=== PATIENT | female | born 1985 | race Caucasian/White ===

== ENCOUNTER 2020-10-30 12:39 | Emergency (ER) | payer SELFPAY ==
[2020-10-30 12:46] VITALS: BP 110/68; PULSE 94; RESP 16; TEMP 36.4; O2SAT 100
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
== END 2020-10-30 13:18 | disposition home or self-care (01) ==
PROVIDERS: Emergency Provider Nurse Practitioner
DX: H60.502 Unspecified acute noninfective otitis externa, left ear (principal); J45.909 Unspecified asthma, uncomplicated
CPT/HCPCS: 99213; G0463

== ENCOUNTER 2021-05-31 09:18 | Emergency (ER) | payer SELFPAY ==
--- NOTE | 2021-05-31 09:29 | ED.URI ---
HPI - URI/Sore Throat General Chief Complaint: Upper Respiratory Infection Stated Complaint: asthma flare up Time Seen by Provider: 05/31/21 09:29 Source: patient and RN notes reviewed History of Present Illness HPI Narrative: Patient is a 35-year-old female presents the urgent care with complaints of an asthma flare . Patient states that she has not seen her doctor for refill of her nebulizers and inhaler and has not had an asthma flare since last year. Patient states that her symptoms started last night and she has had difficulty breathing and shortness of breath since then. Patient denies of any other upper respiratory complaints, cough, fever, nausea, vomiting. No other acute complaints. No acute distress noted. Patient aware of the plan of care. Some parts of this dictation were generated by voice recognition software and may contain typographical and/or grammatical inaccuracies. Related Data Allergies Allergy/AdvReac Type Severity Reaction Status Date / Time No Known Allergies Allergy Verified 05/31/21 09:39 Review of Systems Review of Systems: CONSTITUTIONAL: Denies fever, chills, or sweats. EYES: Denies visual changes, redness, or discharge. ENT: Denies rhinorrhea, congestion, sore throat, or otalgia. CARDIOVASCULAR: Denies chest pain, palpitations, or edema. RESPIRATORY: Reports of shortness of breath and slight wheezing GASTROINTESTINAL: Denies abdominal pain, nausea, vomiting, or diarrhea. GENITOURINARY: Denies dysuria or hematuria. SKIN: Denies rash or itching. MUSCULOSKELETAL: Denies back pain, joint pain, or myalgia. NEUROLOGIC: Denies headache, numbness, or weakness. All other systems reviewed are negative, except as documented in HPI. [facility] Past Medical History Medical History (Updated 05/31/21 @ 10:22 by MIKE Barnes) Asthma Surgical History Surgical History History of appendectomy Previous section Comments At the time of my signature, I reviewed and agree with the nursing past medical, surgical, social, and family history. There is no relevant family history pertinent to the patient complaint. Exam Narrative: GENERAL: This is a well-nourished, well-developed patient, in no apparent distress. HEAD: normocephalic, atraumatic. EYES: PERRL. Sclera clear/white. Vision is grossly intact. EARS: External ears normal, auditory canals clear and without drainage, TMs normal without perforation. Hearing grossly intact. NOSE: External nose normal with no obvious nasal discharge, nares without redness, no rhinorrhea. THROAT: Mucous membranes moist, posterior pharynx clear. Moderate postnasal drainage NECK: Neck supple CARDIOVASCULAR: Regular rate and rhythm without murmurs, gallops, or rubs. RESPIRATORY: Clear to auscultation. Tight and diminished bibasilar SKIN: warm, intact with no suspicious lesions or rash, good texture and turgor. NEURO: awake, alert, and oriented to person, place and time. There were no obvious focal neurologic abnormalities. EXTREMITIES: No clubbing, cyanosis, or edema. Course Course Level of Care: Express Care Visit Vital Signs Vital signs: Vital Signs Temperature 98.4 F 05/31/21 09:30 Pulse Rate 59 L 05/31/21 09:30 Respiratory Rate 18 05/31/21 09:30 Blood Pressure 128/90 05/31/21 09:30 Pulse Oximetry 100 05/31/21 09:30 Temperature 98.4 F 05/31/21 09:30 Pulse Rate 59 L 05/31/21 09:30 Respiratory Rate 18 05/31/21 09:30 Blood Pressure 128/90 05/31/21 09:30 Pulse Oximetry 100 05/31/21 09:30 Reviewed MDM - URI/Sore Throat MDM Narrative Medical decision making narrative: Advised the patient to complete oral steroid regimen as prescribed. Be sure to eat and drink with medication. Use your nebulizer/albuterol inhaler as needed for shortness of breath or wheezing. If you develop any increase in symptoms associated with shortness of breath or chest pain?go to the emergen
[2021-05-31 09:30] VITALS: BP 128/90; PULSE 59; RESP 18; TEMP 36.9; O2SAT 100
[2021-05-31] MEDS: IPRATROPIUM BR 0.02% INH SOLN 0.5 MG/2.5 ML VIAL INHALATION (09:55)
[2021-05-31] MEDS: ALBUTEROL SULFATE NEB 2.5 MG/3 ML INH INHALATION (09:55)
== END 2021-05-31 10:25 | disposition home or self-care (01) ==
PROVIDERS: Emergency Provider Nurse Practitioner Family; PCP Internal Medicine
DX: J45.31 Mild persistent asthma with (acute) exacerbation (principal)
CPT/HCPCS: 94640; 99213; G0463

== ENCOUNTER 2021-06-25 13:00 | Emergency (ER) | payer SELFPAY ==
[2021-06-25 13:06] VITALS: BP 119/79; PULSE 92; RESP 16; TEMP 37.3; O2SAT 100
--- NOTE | 2021-06-25 13:20 | ED.SKABFB ---
HPI - Skin/Abscess/Foreign Bdy General Chief complaint: Skin/Abscess/Foreign Body Stated complaint: Foreign Body in Right Hand Time Seen by Provider: 06/25/21 13:22 Source: patient and RN notes reviewed Mode of arrival: ambulatory Limitations: no limitations History of Present Illness HPI narrative: 35-year-old female presents with concern for foreign body in her right hand. Reports 2 days ago she was throwing away a glass from a picture frame when it broke and she got a shard of glass in her hand. She reports she went to the emergency room where she had an x-ray, no glass was seen, they were not able to remove any glass manually. She reports she can feel the glass grinding in her hand. Reports she tried to grab it with tweezers, was able to feel it but was not able to remove it. MD complaint: foreign body Related Data Allergies Allergy/AdvReac Type Severity Reaction Status Date / Time No Known Allergies Allergy Verified 06/25/21 13:14 Review of Systems Review of Systems: CONSTITUTIONAL: Denies malaise, chills, sweats, or fever. EYES: Denies redness, or discharge. ENT: Denies rhinorrhea, congestion, swollen lips, swollen tongue CARDIOVASCULAR: Denies chest pain, palpitations, or edema. RESPIRATORY: Denies cough or dyspnea. GASTROINTESTINAL: Denies abdominal pain, nausea, vomiting SKIN: Reports glass foreign body in her right hand, palmar aspect MUSCULOSKELETAL: Denies joint painor myalgia. NEUROLOGIC: Denies headache. All systems reviewed & are unremarkable except as noted in HPI and below PMFSH Past Medical History Medical History (Updated 06/25/21 @ 14:26 by Katrin Flores NP) Asthma Surgical History Surgical History History of appendectomy Previous section Comments At time of signature, agree with nursing past medical, surgical, social and family history. There is no relevant family history pertinent to the presenting complaint Exam Narrative: GENERAL: Well-appearing, well-nourished, and in no acute distress. HEAD: Normocephalic, atraumatic. EYES: Sclera clear ENT: Mucous membranes moist. NECK: Supple. No lymphadenopathy CHEST: Clear to auscultation. No respiratory distress. HEART: Regular rate and rhythm. SKIN: Warm, dry. Open laceration to the mid palmar aspect of the right hand. Foreign body found, see procedure note. Possible deep foreign body palpated to the dorsal aspect of the hand NEURO: Alert and oriented x3. PSYCH: Normal mood and affect Course Course Emergency Course: Large piece of glass removed from the palmar aspect of the hand, possible deep foreign body palpated to the dorsal aspect of the hand. Patient placed on antibiotics and given referral to Dr. Gonsales or follow-up with primary for further evaluation of deep foreign body. Patient is aware of diagnosis, understands and agrees to treatment plan. Anticipatory guidance given. Patient agrees to follow-up as directed and is aware of reasons to seek care at the emergency department. Portions of this record may have been created with voice recognition software Level of Care: Express Care Visit Vital Signs Vital signs: Vital Signs Temperature 99.2 F 06/25/21 13:06 Pulse Rate 92 06/25/21 13:06 Respiratory Rate 16 06/25/21 13:06 Blood Pressure 119/79 06/25/21 13:06 Pulse Oximetry 100 06/25/21 13:06 Temperature 99.2 F 06/25/21 13:06 Pulse Rate 92 06/25/21 13:06 Respiratory Rate 16 06/25/21 13:06 Blood Pressure 119/79 06/25/21 13:06 Pulse Oximetry 100 06/25/21 13:06 Reviewed. Procedures Foreign Body Removal Foreign Body #1: Foreign Body Removal Date: 06/25/21 Foreign Body Removal Time: 14:05 Time Out Performed: yes Site: right and hand Description of foreign body: other (glass) Technique: removal with forceps and irrigation Confirmed by:: patient report Complications: none
== END 2021-06-25 14:31 | disposition home or self-care (01) ==
PROVIDERS: Emergency Provider Nurse Practitioner
DX: S61.441A Puncture wound with foreign body of right hand, initial encounter (principal); W25.XXXA Contact with sharp glass, initial encounter; J45.909 Unspecified asthma, uncomplicated
CPT/HCPCS: 99213; G0463

== ENCOUNTER 2021-08-03 10:15 | Emergency (ER) | payer SELFPAY ==
[2021-08-03 10:22] VITALS: BP 109/66; PULSE 88; RESP 16; TEMP 36.9; O2SAT 98
[2021-08-03 10:29] VITALS: BP 109/66; PULSE 88; RESP 16; TEMP 36.9; O2SAT 98
--- NOTE | 2021-08-03 10:33 | ED.GENADULT ---
HPI - General Adult General Chief complaint: Upper Respiratory Infection Stated complaint: Asthma Time Seen by Provider: 08/03/21 10:25 Source: patient Mode of arrival: ambulatory Limitations: no limitations History of Present Illness HPI narrative: 35-year-old female presented for complaint of asthma exacerbation that occurred 4 days ago. She states she is feeling much better today but is running low on nebulizer medicine and needs a note for work. She states she has a history of asthma which causes her shortness of breath and wheezing and cough. Currently denies chest tightness/ pain, shortness of breath, fever or chills. Scheduled with PCP in a few weeks. Vaccinated for Covid, needs booster. Related Data Allergies Allergy/AdvReac Type Severity Reaction Status Date / Time No Known Allergies Allergy Verified 08/03/21 10:29 Review of Systems Review of Systems: CONSTITUTIONAL: Denies body aches, fever, chills, or sweats. EYES: Denies visual changes, redness, or discharge. ENT: Denies rhinorrhea, congestion, sore throat, or otalgia. CARDIOVASCULAR: Denies chest pain, palpitations, or edema. RESPIRATORY: Denies cough or dyspnea. GASTROINTESTINAL: Denies abdominal pain, nausea, vomiting, or diarrhea. GENITOURINARY: Denies dysuria or hematuria. SKIN: Denies rash, itching, or wounds. MUSCULOSKELETAL: Denies back pain, joint pain, or myalgia. NEUROLOGIC: Denies headache, numbness, tingling, or weakness. PSYCH: Denies depression or anxiety. All systems reviewed & are unremarkable except as noted in HPI and below PMFSH Past Medical History Medical History (Updated 08/03/21 @ 10:36 by Sumaya Suresh APRN) Asthma Surgical History Surgical History History of appendectomy Previous section Comments At time of signature, I have reviewed and agree with nursing past medical, surgical, social and family history unless otherwise noted. Please see nursing chart for further information. There is no relevant family history pertinent to the presenting complaint Exam Narrative: GENERAL: Well-appearing, well-nourished, and in no acute distress. HEAD: Normocephalic, atraumatic. EYES: EOMI. No redness or drainage. Conjunctivae normal. ENT: Mucous membranes pink and moist. No rhinorrhea. TMs normal bilaterally. Throat normal. Uvula midline. NECK: Normal AROM. Supple. No lymphadenopathy. CHEST: No respiratory distress. Clear to auscultation. HEART: Regular rate and rhythm. No murmur appreciated. Normal peripheral pulses. ABDOMEN: Soft, nontender, nondistended, normal active bowel sounds. MUSCULOSKELETAL: No bony tenderness. EXTREMITIES: Normal range of motion. No edema. SKIN: Warm, dry, no rash. Capillary refill normal. Normal skin turgor. NEURO: No focal deficits. Alert and oriented x3. Gait steady. PSYCH: Normal affect. No signs of depression or anxiety. Course Course Emergency Course: Patient is aware of diagnosis, understands and agrees to treatment plan. Anticipatory guidance given. Patient agrees to follow-up as directed and is aware of reasons to seek care at the emergency department. Portions of this record may have been created with voice recognition software Level of Care: Express Care Visit Vital Signs Vital signs: Vital Signs Temperature 98.4 F 08/03/21 10:22 Pulse Rate 88 08/03/21 10:22 Respiratory Rate 16 08/03/21 10:22 Blood Pressure 109/66 08/03/21 10:22 Pulse Oximetry 98 08/03/21 10:22 Temperature 98.4 F 08/03/21 10:29 Pulse Rate 88 08/03/21 10:29 Respiratory Rate 16 08/03/21 10:29 Blood Pressure 109/66 08/03/21 10:29 Pulse Oximetry 98 08/03/21 10:29 Medical Decision Making Differential Diagnosis Differential Diagnosis: asthma exacerbation, bronchitis, covid, viral infection Vital Signs Vital Signs: Vital Signs Temperature 98.4 F 08/03/21 10:22 Pulse Rate 88 08/03/21 10:22 Respi
== END 2021-08-03 10:43 | disposition home or self-care (01) ==
PROVIDERS: Emergency Provider Nurse Practitioner Family
DX: R05.9 Cough, unspecified (principal); J45.909 Unspecified asthma, uncomplicated
CPT/HCPCS: 99211; G0463

== ENCOUNTER 2021-10-01 14:50 | Emergency (ER) | payer SELFPAY ==
[2021-10-01 14:56] VITALS: BP 120/74; PULSE 85; RESP 20; TEMP 37.1; O2SAT 98
--- NOTE | 2021-10-01 15:56 | ED.GENADULT ---
HPI - General Adult General Chief complaint: Abdominal Pain Stated complaint: abdo pain Source: patient Mode of arrival: ambulatory Limitations: no limitations History of Present Illness HPI narrative: Patient presents for evaluation of vaginal bleeding. She indicates she had the sensation that she needed to urinate earlier today. When she sat on the toilet she passed a clot vaginally. This is atypical for her. She states her periods are regular. LMP 09/05/21. She is not on contraception. She states she then placed a pad in her underwear and noted a small amount of bleeding since that time. At present time she has a tampon in. She denies any significant abdominal/pelvic pain. No fever, chills, nausea, vomiting, vaginal discharge or urinary symptoms. No hx of similar symptoms. She reports a small amount of cramping in lower back. . She is sexually active with one male partner who is asymptomatic. No additional complaints or concerns. Related Data Allergies Allergy/AdvReac Type Severity Reaction Status Date / Time No Known Allergies Allergy Verified 10/01/21 15:07 Review of Systems Review of Systems: CONSTITUTIONAL: Denies fever, chills, or sweats. EYES: Denies visual changes, redness, or discharge. ENT: Denies rhinorrhea, congestion, sore throat, or otalgia. CARDIOVASCULAR: Denies chest pain, palpitations, or edema. RESPIRATORY: Denies cough or dyspnea. GASTROINTESTINAL: Denies abdominal pain, nausea, vomiting, or diarrhea. GENITOURINARY: Reports vaginal bleeding and passing clots. Denies urinary frequency, urgency, hesitancy and dysuria. Denies vaginal discharge SKIN: Denies rash or itching. MUSCULOSKELETAL: Reports cramping sensation in right lower back. Denies joint pain, or myalgia. NEUROLOGIC: Denies headache, numbness, dizziness, or weakness. PSYCHIATRIC: Denies anxiety or depression. [facility] Past Medical History Medical History Asthma Surgical History Surgical History History of appendectomy Previous section Family History Family History Mother Family history non-contributory Social History Social History Smoking status: Never smoker Alcohol intake: never Substance use: never Living arrangements: with family Gender identity (if verbalized by the patient): Female Sexual Orientation (if Verbalized by the Patient): Straight or Heterosexual Spiritual care concerns: No Exam Narrative: GENERAL: Well-appearing, well-nourished, and in no acute distress. HEAD: Normocephalic, atraumatic. EYES: PERRLA and EOMI. ENT: Nares clear, no rhinorrhea or epistaxis. Mucous membranes moist. Oropharynx without tonsillar hypertrophy exudate or other lesions. Bilateral TMs pearly willard nonbulging NECK: Supple. No adenopathy or masses. No carotid bruits or JVD CHEST: Clear to auscultation. No respiratory distress. No wheezes rales or rhonchi HEART: Regular rate and rhythm. No murmur heard. Normal peripheral pulses. ABDOMEN: Soft, nontender, nondistended, normal active bowel sounds. BACK: No CVA Tenderness EXTREMITIES: Normal range of motion. No edema. SKIN: Warm, dry, no rash. NEURO: No focal deficits. Alert and oriented x3. PSYCH: Normal mood and affect. Course Course Emergency Course: This is a 35-year-old female that presented for evaluation after she passed a clot vaginally earlier today. HCG is negative. No evidence of infection on review of urine here. She has no abdominal tenderness or CVA tenderness. She could be starting her period. Less likely would be miscarriage in early or perhaps fibroids. I advised she monitor her symptoms to determine whether this is start of her menstruation. She has no vaginal discharge to suggest vaginal
== END 2021-10-01 16:00 | disposition home or self-care (01) ==
PROVIDERS: Emergency Provider Nurse Practitioner; PCP Internal Medicine
DX: N93.9 Abnormal uterine and vaginal bleeding, unspecified (principal)
CPT/HCPCS: 81003; 81025; 99212; G0463

== ENCOUNTER 2024-02-24 08:42 | Emergency (ER) | payer SELFPAY ==
--- NOTE | ~2024-02-24 | XR_ITS ---
[id number] INDICATION: Left lateral neck pain after fall TECHNIQUE: 5 views of the cervical spine. FINDINGS: No prior studies for comparison. The cervical spine is visualized to the cervicothoracic junction. There is no prevertebral soft tiss ue swelling, listhesis, or loss of vertebral body height. Intervertebral disc spaces are normal. Th e osseous central canal is patent. No displaced cervical spine fractures are identified. IMPRESSION: 1. No acute osseous abnormality of the cervical spine. Reviewed, dictated and finalized at location B.
--- NOTE | ~2024-02-24 | XR_ITS ---
XR shoulder LT min 2V 02/24/2024 09:17 INDICATION: Left shoulder pain PROCEDURE: 4 views left shoulder COMPARISON: No prior studies for comparison. FINDINGS: Fracture, dislocation or subluxation is not identified. The soft tissues appear within norm al limits. No foreign bodies are identified. IMPRESSION: 1: NO ACUTE BONE OR JOINT ABNORMALITY IDENTIFIED. Reviewed, dictated and finalized at location B.
[2024-02-24 08:49] VITALS: BP 155/85; PULSE 102; RESP 16; TEMP 36.6; O2SAT 98
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
== END 2024-02-24 09:55 | disposition home or self-care (01) ==
PROVIDERS: Emergency Provider Registered Nurse; PCP Internal Medicine
DX: S40.012A Contusion of left shoulder, initial encounter (principal); S16.1XXA Strain of muscle, fascia and tendon at neck level, initial encounter; V86.99XA Unspecified occupant of other special all-terrain or other off-road motor vehicle injured in nontraffic accident, initial encounter; J45.909 Unspecified asthma, uncomplicated
CPT/HCPCS: 72040; 73030; 99213; G0463

== ENCOUNTER 2025-01-28 13:27 | Emergency (ER) | payer OTHER, SELFPAY ==
--- NOTE | 2025-01-28 13:30 | ED_ITS ---
HPI - URI/Sore Throat General Chief Complaint: Nausea/Vomiting/Diarrhea Stated Complaint: Vomiting Source: patient and RN notes reviewed Mode of arrival: ambulatory Limitations: no limitations History of Present Illness MD elicited complaint: cough and sore throat Related Data Allergies Allergy/AdvReac Type Severity Reaction Status Date / Time No Known Allergies Allergy Verified 01/28/25 13:33 Review of Systems Review of Systems: CONSTITUTIONAL: Denies malaise, chills, sweats, or fever. EYES: Denies visual changes, redness, or discharge. ENT: Reports rhinorrhea, congestion, sinus pain, otalgia and sore throat. CARDIOVASCULAR: Denies chest pain, palpitations, or edema. RESPIRATORY: Reports cough. Denies dyspnea. GASTROINTESTINAL: Denies abdominal pain, nausea, vomiting, diarrhea SKIN: Denies rash or itching. MUSCULOSKELETAL: Denies myalgia. NEUROLOGIC: Denies headache. All systems reviewed & are unremarkable except as noted in HPI and below PMFSH Past Medical History Medical History (Updated 01/28/25 @ 14:04 by Katrin Flores NP) Asthma Surgical History Surgical History Previous section History of appendectomy Family History Family History Mother Family history non-contributory Social History Social History Smoking status: Never smoker Alcohol intake: current Alcohol use details: social Substance use: never Living arrangements: with family Gender identity (if verbalized by the patient): Female Sexual Orientation (if Verbalized by the Patient): Straight or Heterosexual Spiritual care concerns: No Comments At time of signature, agree with nursing past medical, surgical, social and family history. There is no relevant family history pertinent to the presenting complaint Exam Narrative: GENERAL: Well-appearing, well-nourished, and in no acute distress. HEAD: Normocephalic EYES: PERRLA, conjunctivae clear ENT: Nares clear, turbinates edematous and erythematous, clear discharge. Mucous membranes moist. TM pearly willard with dull light reflex bilaterally; no tragal tenderness. Oropharynx not erythematous without lesions. Tonsils not enlarged and without exudate, no drooling, no hoarseness, no trismus, uvula midline. NECK: Supple. No lymphadenopathy CHEST: Clear to auscultation, breath sounds equal. No wheezing, rhonchi, rales, or stridor. No respiratory distress, speaks in full sentences. HEART: Regular rate and rhythm. No murmur heard. SKIN: Warm, dry, no rash. NEURO: Alert and oriented x3. PSYCH: Normal mood and affect Course Course Emergency Course: Patient is aware of diagnosis, understands and agrees to treatment plan. Anticipatory guidance given. Patient agrees to follow-up as directed and is aware of reasons to seek care at the emergency department. Portions of this record may have been created with voice recognition software Level of Care: Express Care Visit Vital Signs Vital signs: Reviewed. MDM - URI/Sore Throat MDM Narrative Medical decision making narrative: Differential diagnosis considered: Avalos virus, strep pharyngitis, allergic rhinitis, upper respiratory tract infection, sinusitis, rhinosinusitis, nasopharyngitis. viral pharyngitis, otitis media, otitis externa, pneumonia, bronchitis, viral cough syndrome, viral syndrome, and influenza. Exam findings show no acute concerns or changes; patient is non-toxic appearing and is in no distress. Patient is appropriate for outpatient treatment and follow-up. Lab Data Attestation: I reviewed the patient's lab results. Critical Care Time Critical Care Time Critical Care Time: No Discharge Plan Discharge Clinical Impression: Nausea and vomiting Patient Disposition: Home Condition: Stable Instructions: Acute Nausea and Vomiting (ED) Additional Instructions: Stay hydrated. Take small sips of fluid containing electrolytes frequently. You should go to the hospital if you experience return of persistent nausea and v omiting that does not resolve and does not allow you to tolerate any food or fluids, persistent fevers for greater than 2-3 more days, increasing abdominal pain that persists despite medications, persistent diarrhea, dizziness, syncope (fainting), or for any other concerns. Patient Language: Croatian Prescriptions: New ondansetron 4 mg tablet,disintegrating 4 mg PO Q8H PRN (Reason: nausea and vomiting) Qty: 10 0RF No Action albuterol sulfate 90 mcg/actuation HFA aerosol inhaler 2 puff INHALATION QID PRN (Reason: shortness of breath or wheezing) Qty: 8 0RF albuterol sulfate 2.5 mg /3 mL (0.083 %) solution for nebulization 2.5 mg inhalation Q6H Qty: 75 0RF Follow-up/Referrals: UNKNOWN,DOCTOR [Non-Staff] Stand Alone Forms: Work/School Release IP Time of Disposition: 14:05
[2025-01-28 13:34] VITALS: BP 152/65; PULSE 104; RESP 20; TEMP 36.2; O2SAT 100
[2025-01-28 13:58] LABS: EDCOVIDSCREEN Negative (Negative); EDINFLUASCREEN Negative (Negative); EDINFLUBSCREEN Negative (Negative)
[2025-01-28 13:59] LABS: EDSTREPNEGPOS1 Negative (Negative)
--- NOTE | 2025-01-28 14:07 | ED.NAVMDI ---
HPI - Nausea/Vomiting/Diarrhea General Chief complaint: Nausea/Vomiting/Diarrhea Stated complaint: Vomiting Time Seen by Provider: 01/28/25 14:07 Source: patient and RN notes reviewed Mode of arrival: ambulatory Limitations: no limitations History of Present Illness HPI Narrative: 39-year-old female presents with concern for nausea and vomiting started this morning. Reports general weakness, body aches, nausea, sweats and chills. She did not take her temperature. She is urinating once every 8 hours. She denies abdominal pain. Reports family members and coworkers with similar symptoms MD elicited complaint: nausea and vomiting Related Data Allergies Allergy/AdvReac Type Severity Reaction Status Date / Time No Known Allergies Allergy Verified 01/28/25 13:33 Review of Systems Review of Systems: CONSTITUTIONAL: Reports malaise, general weakness, chills, sweats ENT: Denies rhinorrhea, congestion, sinus pain, otalgia or sore throat. CARDIOVASCULAR: Denies chest pain, palpitations, or edema. RESPIRATORY: Denies cough or dyspnea. GASTROINTESTINAL: Denies abdominal pain, diarrhea, bloody, or mucous stools. Reports nausea and vomiting GENITOURINARY: Denies dysuria or hematuria. MUSCULOSKELETAL: Reports myalgia. NEUROLOGIC: Denies headache. All systems reviewed & are unremarkable except as noted in HPI and below PMFSH Past Medical History Medical History (Updated 01/28/25 @ 14:04 by Katrin Flores NP) Asthma Surgical History Surgical History Previous section History of appendectomy Family History Family History Mother Family history non-contributory Social History Social History Smoking status: Never smoker Alcohol intake: current Alcohol use details: social Substance use: never Living arrangements: with family Gender identity (if verbalized by the patient): Female Sexual Orientation (if Verbalized by the Patient): Straight or Heterosexual Spiritual care concerns: No Comments At time of signature, agree with nursing past medical, surgical, social and family history. There is no relevant family history pertinent to the presenting complaint Exam Narrative: GENERAL: Well-appearing, well-nourished, and in no acute distress. HEAD: Normocephalic, atraumatic. EYES: PERRLA, conjunctivae clear, and EOMI. ENT: Nares clear, turbinates pink, NECK: Supple. No lymphadenopathy CHEST: Speaks in full sentences. No respiratory distress. HEART: Regular rate and rhythm. ABDOMEN: Soft, flat, nondistended, nontender. No guarding, rebound tenderness, or rigidity. No pulsatile masses. Bowel sounds present in all four quadrants. No organomegaly. Negative Emerson?s sign. No periumbilical tenderness. No Supra public tenderness or distension SKIN: Warm, dry, no rash. NEURO: Alert and oriented x3. PSYCH: Normal mood and affect Course Course Emergency Course: Patient is aware of diagnosis, understands and agrees to treatment plan. Anticipatory guidance given. Patient agrees to follow-up as directed and is aware of reasons to seek care at the emergency department. Portions of this record may have been created with voice recognition software Level of Care: Express Care Visit Vital Signs Vital signs: Vital Signs Temperature 97.2 F L 01/28/25 13:34 Pulse Rate 104 H 01/28/25 13:34 Respiratory Rate 01/28/25 13:34 Blood Pressure 152/65 H 01/28/25 13:34 Pulse Oximetry 100 01/28/25 13:34 Oxygen Delivery Room Air 01/28/25 13:34 Temperature 97.2 F L 01/28/25 13:34 Pulse Rate 104 H 01/28/25 13:34 Respiratory Rate 20 01/28/25 13:34 Blood Pressure 152/65 H 01/28/25 13:34 Pulse Oximetry 100 01/28/25 13:34 Oxygen Delivery Room Air 01/28/25 13:34 Reviewed. MDM - Nausea/Vomiting/Diarrhea MDM Narrative Medical decision making narrative: No evidence of pancreatitis, AAA, cholecystitis, choledocholithiasis, cholangitis, mesenteric ischemia, small bowel obstruction, diverticulitis, colitis, appendicitis, or pelvic etiology such as ovarian/testicular torsion, TOA, or ectopic . Patient has no history of peptic ulcer, H. pylori, chronic aspirin NSAID or corticosteroid use, chronic alcohol use, no history of inflammatory bowel disease, no history of active abdominal infection or malignancy. Patient has no history of hernia or intra-abdominal surgeries, patient denies absence of flatus, constipation, melena, hematemesis. Patient denies post-prandial pain. No pain-out of proportion. Exam findings show no acute concerns or changes; patient is non-toxic appearing and is in no distress. Patient is appropriate for outpatient treatment and follow-up. Lab Data Labs: Lab Results 01/28/25 Range/Units 13:42 POC Influenza A Ag Negative (Negative) POC Influenza B Ag Negative (Negative) POC SARS CoV-2 Ag Negative (Negative) POC Grp A Strep Screen Negative (Negative) Critical Care Time Critical Care Time Critical Care Time: No Discharge Plan Discharge Clinical Impression: Nausea and vomiting Patient Disposition: Home Condition: Stable Instructions: Acute Nausea and Vomiting (ED) Additional Instructions: Stay hydrated. Take small sips of fluid containing electrolytes frequently. You should go to the hospital if you experience return of persistent nausea and vomiting that does not resolve and does not allow you to tolerate any food or fluids, persistent fevers for greater than 2-3 more days, increasing abdominal pain that persists despite medications, persistent diarrhea, dizziness, syncope (fainting), or for any other concerns. Patient Language: South African Prescriptions: New ondansetron 4 mg tablet,disintegrating 4 mg PO Q8H PRN (Reason: nausea and vomiting) Qty: 10 0RF No Action albuterol sulfate 90 mcg/actuation HFA aerosol inhaler 2 puff INHALATION QID PRN (Reason: shortness of breath or wheezing) Qty: 8 0RF albuterol sulfate 2.5 mg /3 mL (0.083 %) solution for nebulization 2.5 mg inhalation Q6H Qty: 75 0RF Follow-up/Referrals: UNKNOWN,DOCTOR [Non-Staff] Stand Alone Forms: Work/School Release IP Time of Disposition: 14:05
--- OUTSIDE RECORDS SUMMARY | 2025-01-28 14:38 | XMS_ITS | Clinical Summary ---
Author Organization [facility] Healthcare Address [address] [place] [address] Care Team Providers Care Streetcar Repairer Helper Name Role Phone Tor Medina MD Primary Care Provider [phone] Allergies No known active allergies Medications albuterol HFA (PROVENTIL HFA,VENTOLIN HFA) 90 mcg/actuation inhaler Inhale 2 puffs every 6 (six) hours as needed for wheezing. Active ondansetron ODT (ZOFRAN-ODT) 8 mg disintegrating tablet Take 1 tablet (8 mg total) by mouth every 8 (eight) hours as needed for nausea or vomiting 30 tablet Active Active Problems No known active problems Immunizations Immunization Administration Dates Next Due Tdap 09/15/2017 Social History Tobacco Use Types Packs/Day Years Used Date Smoking Tobacco: Never Smokeless Tobacco: Never Personal Safety Answer Date Recorded Have you ever been in or are you currently in a harmful physical or emotional relationship or is someone making you feel afraid or unsafe? Denies 07/26/2023 Comments No Sex and Gender Information Value Date Recorded Sex Assigned at Not on file Legal Sex Female 1:48 PM ADVERTISING ASSISTANT Gender Identity Not on file Sexual Orientation Not on file Obstetrics History Last Filed Vital Signs Vital Sign Reading Time Taken Comments Blood Pressure 126/82 07/26/2023 2:00 PM ADVERTISING ASSISTANT Pulse 63 07/26/2023 2:00 PM ADVERTISING ASSISTANT Temperature 36.2 C (97.2 F) 07/26/2023 7:33 AM ADVERTISING ASSISTANT Respiratory Rate 16 07/26/2023 2:00 PM ADVERTISING ASSISTANT Oxygen Saturation 99% 07/26/2023 2:00 PM ADVERTISING ASSISTANT Inhaled Oxygen Concentration - - Weight 72.6 kg (160 lb) 07/26/2023 7:33 AM ADVERTISING ASSISTANT Height 157.5 cm (5' 2) 07/26/2023 7:33 AM ADVERTISING ASSISTANT Body Mass Index 29.26 07/26/2023 7:33 AM ADVERTISING ASSISTANT Plan of Treatment Health Maintenance Due Date Last Done Comments Cervical Cancer Screening 1987 Depression Screening 1987 Hepatitis C Screening 1987 Varicella Vaccines (1 of 2 - 13+ 2-dose series) 11/01/2000 Regular Well Visit/Exam 18-64 11/01/2005 HPV Vaccines (1 - 3-dose SCDM series) 11/01/2014 Covid-19 Vaccine ( season) 2024 10/27/2020 Influenza Vaccine (#1) 2025 04/13/2003, 2001 DTaP/Tdap/Td Vaccine (7 - Td or Tdap) 09/16/2027 09/15/2017, 01/02/2006, 12/16/1996, Additional history exists Hepatitis B Screening Completed 03/05/1999 , 09/15/1997, 01/24/1997 Pneumococcal vaccine <65 Aged Out No longer eligible based on patient's age to complete this topic [place] Care Teams Streetcar Repairer Helper Relationship Specialty Start Date End Date Tor Medina MD [address] [place] [place] [id number] PCP - General Internal Medicine 09/15/17
--- OUTSIDE RECORDS SUMMARY | 2025-01-28 14:38 | XMS_ITS | Clinical Summary ---
Author Organization [facility] Address [address] [place] [address] Phone Care Team Providers Care Home Maker Name Role Phone Harry Ann Primary Care Provider [phone] Allergies No known active allergies Medications albuterol (PROVENTIL, VENTOLIN) (2.5 MG/3ML) 0.083% Nebulizer Soln INHALE 1 VIAL BY NEBULIZER EVERY 6 HOURS 2 Active albuterol 108 (90 Base) MCG/ACT Aerosol SolutionIndicatio ns:Mild intermittent asthma with exacerbation take 2 Puffs by inhalation every 4 hours as needed for Wheezing or Cough. 18 g 2 Active Active Problems No known active problems Social History Tobacco Use Types Packs/Day Years Used Date Smoking Tobacco: Never Smokeless Tobacco: Never Alcohol Use Standard Drinks/Week Comments Not Currently 0 (1 standard drink = 0.6 oz pur e alcohol) Comments Unknown Sex and Gender Information Value Date Recorded Sex Assigned at Not on file Legal Sex Female 11:20 PM CDT Gender Identity Not on file Sexual Orientation Not on file Last Filed Vital Signs Vital Sign Reading Time Taken Comments Blood Pressure 126/84 08/11/2021 2:00 PM CDT Pulse 77 08/11/2021 2:00 PM CDT Temperature 36.9 C (98.4 F) 08/11/2021 2:00 PM CDT Respiratory Rate 18 08/11/2021 2:00 PM CDT Oxygen Saturation 97% 08/11/2021 2:00 PM CDT Inhaled Oxygen Concentration - - Weight - - Height - - Body Mass Index - - Plan of Treatment Health Maintenance Due Date Last Done Comments Hepatitis C Virus (HCV) Screening 1987 Pap Smear 11/01/2008 Human Papillomavirus (HPV) Immunization (1 - 3-dose SCDM series) 11/01/2014 Cervical Cancer Screening (CCS) 11/01/2017 HPV/Cotest 11/01/2017 Influenza Immunization (#1) 2025 SARS-COV-2 Immunization (2 - season) 2025 10/27/2020 Respiratory Syncytial Virus (RSV) Immunization (Adult) (1 - 1-dose 75+ series) 11/01/2062 Hepatitis B Immunization Completed 999, 09/15/1997, 01/24/1997 DTaP/Tdap/Td Immunization Discontinued 2017, 01/02/2006, 12/16/1996, Additional history exists TdaP Immunization Completed 09/15/2017, 01/02/2006 Meningococcal Immunization (ACWY) Aged Out No longer eligible based on patient's age to complete this topic Pneumococcal Immunization Combined Aged Out No longer eligible based on patient's age to complete this topic Rotavirus Immunization Aged Out No lo nger eligible based on patient's age to complete this topic Care Teams Home Maker Relationship Specialty Start Date End Date Harry Ann, PAC [address] [place] [address] PCP - General Physician Liquor Inspector 08/11/21
== END 2025-01-28 14:10 | disposition home or self-care (01) ==
PROVIDERS: Emergency Provider Nurse Practitioner
DX: R11.2 Nausea with vomiting, unspecified (principal); Z20.822 Contact with and (suspected) exposure to COVID-19; J45.909 Unspecified asthma, uncomplicated
CPT/HCPCS: 87081; 87426; 87804; 87880; 99213; G0463